=== PATIENT | female | born 1990 | race American Indian/Alaskan Native ===

== ENCOUNTER 2019-08-07 09:37 | Emergency (ER) | payer SELFPAY ==
[2019-08-07 10:09] LABS: Hematocrit 35.4 % (30.3-42.9); Hemoglobin 11.3 gm/dl (10.1-14.3); Mean Corpuscular HGB Conc 32 % (30-34); Platelet Count 371 K/mm3 (140-440); Red Blood Count 5.55 M/mm3 (3.65-5.03); Red Cell Distribution Width 18.9 % (13.2-15.2)
[2019-08-07 10:10] LABS: Mean Corpuscular Volume 64 fl (79-97)
[2019-08-07] MEDS ORDERED: SODIUM CHLORIDE 0.9% 500 ML 500 ML IV ONE (10:20)
[2019-08-07 10:26] LABS: Alanine Aminotransferase 47 units/L (7-56); Albumin 3.3 g/dL (3.9-5); BUN/Creatinine Ratio 7; Blood Urea Nitrogen 5 mg/dL (7-17); Calcium 9.1 mg/dL (8.4-10.2); Hemolysis Index 0
[2019-08-07] MEDS ORDERED: ACETAMINOPHEN 650 MG RECT SUPP PR ONE (10:26)
[2019-08-07] MEDS ORDERED: SODIUM CHLORIDE 0.9% 1000 ML 1,000 ML IV ONE ×3 (10:38→17:14)
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
[2019-08-07 10:51] LABS: INR 1.01 (0.87-1.13)
[2019-08-07 11:23] LABS: Alanine Aminotransferase 47 units/L (7-56); Albumin 3.4 g/dL (3.9-5); BUN/Creatinine Ratio 7; Bilirubin,Direct 0.3 mg/dL (0-0.2); Blood Urea Nitrogen 5 mg/dL (7-17); Calcium 9.3 mg/dL (8.4-10.2); Hemolysis Index 0
[2019-08-07 12:28] LABS: Basophils % (Manual) 0 % (0.0-1.8); Eosinophils % (Manual) 0 % (0.0-4.3); Total Cells Counted 100
[2019-08-07 12:30] LABS: Platelet Estimate Consistent w Auto; Target Cells Few
--- NOTE | 2019-08-07 14:27 | Cat Scan Report ---
CT ABDOMEN AND PELVIS WITHOUT CONTRAST HISTORY: left flank pain fever. COMPARISON: None. TECHNIQUE: CT images of the abdomen and pelvis were obtained without administration of intravenous co ntrast. All CT scans at this location are performed using CT dose reduction for ALARA by means of au tomated exposure control. FINDINGS: Lungs/bones: Lung bases are clear. No acute osseous abnormality or significant DJD. Abdomen/pelvis: The uterus demonstrates a lobulated appearance especially left of midline in the reg ion of the uterine body/fundus, compressing the distal left ureter. There is mild left-sided hydronep hrosis and inflammatory stranding tracking along the ureter and the left kidney. No radiopaque urinar y stone disease identified. The right kidney is unremarkable. Gallbladder is surgically absent. There is hepatomegaly with mild steatosis. The spleen, pancreas, ad renals, and proximal GI tract appear unremarkable. Urinary bladder is slightly effaced by the uterus. No pelvic free fluid or acute colonic abnormality identified. The appendix is normal. IMPRESSION: 1. Abnormal lobulated appearance of the uterus as described above with compression of the distal uret er causing mild hydronephrosis and inflammatory change along the ureter and the left kidney. Cannot e xclude evolving pyelonephritis. Uterine findings could be seen with fibroid disease, but at a minimum correlate with exam findings and history. Signer Name: Vasquez Spencer MD Signed: 08/07/2019 2:22 PM Workstation Name: [id number]
--- NOTE | 2019-08-07 14:35 | XRay Report ---
CHEST 1 VIEW INDICATION: possible Sepsis. COMPARISON: 04/07/2013 FINDINGS: Support devices: None. Heart: Within normal limits. Lungs/Pleura: No acute air space or interstitial disease. Additional findings: None. IMPRESSION: 1. No acute findings. Signer Name: Vasquez Spencer MD Signed: 08/07/2019 2:30 PM Workstation Name: [email or web address]
[2019-08-07] MEDS ORDERED: MORPHINE 4 MG/1 ML INJ IV ONE ×2 (15:03→17:14)
[2019-08-07] MEDS ORDERED: cefTRIAXone/NS 2 GM/100 ML 2 GM/100 ML BAG IV ONE (16:06)
[2019-08-07] MEDS ORDERED: ACETAMINOPHEN 325 MG TAB PO ONE (16:11)
[2019-08-07 16:58] LABS: Bacteria,Urine 4+ /HPF (Negative); Bilirubin,Urine NEG (Negative); Blood,Urine SM (Negative); Color,Urine Amber (Yellow); Mucus,Urine FEW /HPF; Urobilinogen,Urine < 2.0 mg/dL (<2.0)
[2019-08-07 17:00] LABS: HCG Qualitative,Urine Negative (Negative)
[2019-08-07 17:40] VITALS: BP 106/73
== END 2019-08-07 17:44 | disposition other institution (70) ==
LOC: ED 09:37
DX: A41.9 Sepsis, unspecified organism (principal); N12 Tubulo-interstitial nephritis, not specified as acute or chronic; N13.30 Unspecified hydronephrosis; D25.9 Leiomyoma of uterus, unspecified; Z90.49 Acquired absence of other specified parts of digestive tract; Z79.899 Other long term (current) drug therapy; Z88.0 Allergy status to penicillin; Z91.013 Allergy to seafood; Z88.8 Allergy status to other drugs, medicaments and biological substances
CPT/HCPCS: 36415; 71045; 74176; 80048; 80053; 80076; 81001; 81025; 82140; 82805; 84703; 85007; 85025; 85610; 87040; 87086; 93005; 93010; 96365; 96375; 96376; 99285; J0696; J2270; J7030; J7040

== ENCOUNTER 2021-12-12 05:46 | Day surgery (SDC) | payer BC ==
[2021-12-09 10:43] LABS: Basophils # (Auto) 0.1 K/mm3 (0.0-0.1); Basophils % (Auto) 1.2 % (0.0-1.8); Eosinophils # (Auto) 0.2 K/mm3 (0.0-0.4); Eosinophils % (Auto) 1.8 % (0.0-4.3); Hematocrit 34.1 % (30.3-42.9); Hemoglobin 11.1 gm/dl (10.1-14.3); Lymphocytes # (Auto) 3.2 K/mm3 (1.2-5.4); Lymphocytes % (Auto) 26.5 % (13.4-35.0); Mean Corpuscular HGB Conc 32 % (30-34); Monocytes # (Auto) 0.8 K/mm3 (0.0-0.8); Monocytes % (Auto) 6.7 % (0.0-7.3); Platelet Count 316 K/mm3 (140-440); Red Blood Count 4.97 M/mm3 (3.65-5.03)
[2021-12-09 10:53] LABS: Blood Urea Nitrogen 8 mg/dL (7-17); Calcium 8.8 mg/dL (8.4-10.2); Hemolysis Index 0; Mean Corpuscular Volume 69 fl (79-97)
[2021-12-09 10:59] LABS: BUN/Creatinine Ratio 20
--- NOTE | 2021-12-10 16:10 | History and Physical Report ---
History of Present Illness Date of examination: 12/09/21 History of present illness: Patient has been reassessed/reevaluated. H&P has been reviewed. No interval changes. This is a 31 years old female who presents with uterine fibroids. She complains of abdominal pain, abdominal pressure, pelvic pain, pelvic pressure, menorrhagia and intermenstrual bleeding. Treatment tried to date includes control pills and NSAIDs. Patient's work up has included a transvaginal ultrasound which revealed a 7cm fundal myoma The patient also presents with menstrual disorder. She complains of irregular menses, heavy bleeding, lack of menses, dysmenorrhea, clotting, fatigue and cramping, but denies mid-cycle spotting, history of ovarian cysts, history of thyroid disease history of PCOS, history of bleeding disorder and lightheadedness. Patient reports that for pain she uses OCP's and ibuprofen. Patient's symptoms when present disrupts her normal daily activities ] Vital Signs: Patient Profile: 31 Years Old Female LMP: 09/03/2021 Height: 64 inches (162.56 cm) Weight: 321 pounds BMI: 55.09 Temp: 97.1 degrees F BP sittin / 80 (right arm) Menstrual History: Current Method of Contraception: None Date of Last Pap Smear: 08/12/2021 Past History : 0 Term Births: 0 Premature Births: 0 Living Children: 0 Para: 0 Mult. Births: 0 Prev : 0 Aborta: 0 Elect. Ab: 0 Spont. 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 of genital herpes: yes Hx of STD: None Review of Systems General Complains of fatigue. Denies fever, chills, sweats, anorexia, weakness, malaise, weight loss and sleep disorder. Complains of menorrhagia, pelvic pain and painful periods. Denies vaginal discharge, incontinence, dysuria, hematuria, urinary frequency, amenorrhea, abnormal vaginal bleeding, genital sores, decreased libido, painful sex, urinary urgency, hot flashes, vaginal dryness, vaginal itching and vaginal odor. CV Denies chest pains, palpitations, syncope, dyspnea on exertion, orthopnea, PND and peripheral edema. Resp Denies cough, dyspnea at rest, excessive sputum, hemoptysis, wheezing and pleurisy. GI Denies nausea, vomiting, diarrhea, constipation, change in bowel habits, abdominal pain, melena, hematochezia, jaundice, gas/bloating, indigestion/heartburn, dysphagia and odynophagia. Breast Denies left breast lump, right breast lump, nipple discharge, bloody discharge from nipple, breast pain, abnormal mammogram and breast enlargement. Psych Denies depression, anxiety, irritability and mood swings. Past History Past Medical History: other (Please see HPI) Past Surgical History: Other (Please see HPI) Social history: full code (Please see HPI) Family history: other (Please see HPI) Medications and Allergies Allergies Allergy/AdvReac Type Severity Reaction Status Date / Time iodine Allergy Unknown Verified 10/19/13 07:14 Penicillins Allergy Hives Verified 04/30/16 18:39 shellfish derived Allergy Hives Verified 11/10/13 08:57 Home Medications Medication Instructions Recorded Confirmed Last Taken Type Norgestimate-Ethinyl Estradiol 1 tab PO DAILY 11/29/21 11/29/21 Unknown History [Sprintec 28 Day Tablet] Active Meds: Active Medications Acetaminophen (Acetaminophen 500 Mg Tab) 1,000 mg PO ONCE ODETTE Celecoxib (Celecoxib 200 Mg Cap) 400 mg PO PREOP ODETTE Lactated Ringer's (Lactated Ringers) 1,000 mls @ 125 mls/hr IV DIRECT ODETTE Magnesium Oxide (Magnesium Oxide 400 Mg Tab) 400 mg PO ONCE ODETTE Methocarbamol (Methocarbamol 750 Mg Tab) 1,500 mg PO ONCE ODETTE Review of Systems Constitutional: other (Please see HPI) Exam - Physical Exam Narrative exam: HEENT: normocephalic, no lesions or deformities Skin no ulcers, xanthomas .Tatoo(s) are present Chest: respiratory effort normal, clear to auscultation CV: regular, normal S1-S2, no murmur, no rub, no gallop Abdomen: Obese, normal bowel sounds, soft, nontender, no HSM Neuro: no gross anomalities Extremities: normal alignment, no joint enlargement, crepitus, masses or tenderness; normal tone and strength [employer]PER[employer] COMM[employer]ICATIONS [employer] SIGNALS Exams Vulva/Vagina: normal appearance, no discharge, lesions. No evidence of cystocele or rectocele. Cervix: normal appearance, no lesions, no discharge Uterus: unable to palpate due to obesity Adnexae: unable to palpate due to obesity Rectovaginal: exam defered - Constitutional Vitals: Temp Pulse Resp BP Pulse Ox 98.4 F 92 H 16 132/67 99 12/09/21 09:45 12/09/21 09:45 12/09/21 09:45 12/09/21 09:45 12/09/21 09:45 Results - Labs CBC & Chem 7: 12/09/21 09:55 12/09/21 09:55 Assessment and Plan - Patient Problems (1) Intramural leiomyoma of uterus Current Visit: No Status: Acute Plan to address problem: Diagnosis explained to patient . Questions answered. Discussed with patient various medical, surgical and radiological therapies common for treatment including expectant management, myomectomy hysterectomy and uterine artery embolization Patient's symptoms when present disrupts her normal daily activities Patient desires definitive treatment.Patient desires to retain future fertility. She desires myomectomy. Discussed risks and benefits of laparotomy and robotic assisted approaches Patient desires robotic assisted myomectomy. Discuss the risks of the surgery including infection, bleeding possibly heavy enough to require a blood transfusion, possible damage to bowel, bladder or ureter. Patient understands that there is a possibility that a hysterectomy maybe indicated for severe bleeding not resoved with conservative measures.Patient advised the small risks of spreading of malignancy if morcellator is used during the surgery patient understands and approve of use if necessary. All her questions were answered. Patient understands Patient u nderstands and desires to proceed. (2) Menometrorrhagia Current Visit: No Status: Acute Plan to address problem: Probably secondary to # 1 (3) Dysmenorrhea Current Visit: No Status: Acute Plan to address problem: Probably secondary to # 1 (4) Adult BMI 50.0-59.9 kg/sq m Current Visit: No Status: Acute Plan to address problem: Patient has been advised that obesity does increase risks of surgical and risks of post operative complications.
[2021-12-12] MEDS ORDERED: LACTATED RINGERS 1,000 ML IV SCH (06:00)
[2021-12-12] MEDS ORDERED: MAGNESIUM OXIDE 400 MG TAB PO SCH (06:00)
[2021-12-12] MEDS ORDERED: ACETAMINOPHEN 500 MG TAB PO SCH (06:00)
[2021-12-12] MEDS ORDERED: CELECOXIB 200 MG CAP PO SCH (06:00)
[2021-12-12] MEDS ORDERED: GENTAMICIN 500 MG in SODIUM CHLORIDE 0.9% 100 ML IV ONE (07:00)
[2021-12-12] MEDS ORDERED: VASOPRESSIN 20 UNIT/1 ML INJ ONE (07:19)
[2021-12-12] MEDS ORDERED: SODIUM CHLORIDE 0.9% 100 ML ONE (07:19)
[2021-12-12] MEDS ORDERED: LIDOCAINE PF 100 MG/5 ML (CARDIAC SYRINGE) IV ONE (07:27)
[2021-12-12] MEDS ORDERED: ROCURONIUM 50 MG/5 ML INJ IV ONE ×2 (07:27→12:21)
[2021-12-12] MEDS ORDERED: propofoL 200 MG/20 ML VIAL IV ONE (07:27)
[2021-12-12] MEDS ORDERED: fentaNYL 250 MCG/5 ML INJ ONE (07:27)
[2021-12-12] MEDS ORDERED: dexAMETHasone 4 MG/ML VIAL ONE (07:35)
[2021-12-12] MEDS ORDERED: fentaNYL 100 MCG/2 ML INJ ONE ×2 (07:35→11:56)
[2021-12-12] MEDS ORDERED: BUPIVACAINE/PF (0.25%) 2.5 MG/ML 30 ML VIAL INFILTRATI ONE (07:35)
[2021-12-12] MEDS ORDERED: MIDAZOLAM 2 MG/2 ML INJ ONE (07:35)
--- NOTE | 2021-12-12 07:37 | Anesthesia Consultation ---
Anesthesia Consult and Med Hx Date of service: 12/12/21 - Airway Anesthetic Teeth Evaluation: Good ROM Head & Neck: Adequate Mental/Hyoid Distance: Adequate Mallampati Class: Class III Intubation Access Assessment: Probably Good - Pre-Operative Health Status ASA Pre-Surgery Classification: ASA3 Proposed Anesthetic Plan: General Nerve Block: TAP Block - Pulmonary Hx Smoking: Yes (SMOKES MARIJUANA) Hx Asthma: No COPD: No Hx Sleep Apnea: No - Cardiovascular System Hx Hypertension: Yes (ONLY WITH MIGRAINES- NO MEDS) - Central Nervous System Hx Psychiatric Problems: Yes - Endocrine Hx Renal Disease: No (Hydronephrosis, pyelonephritis) - Hematic Hx Anemia: Yes Hx Sickle Cell Disease: No - Other Systems Hx Alcohol Use: No Hx Substance Use: Yes (MARIJUANA) Hx Cancer: No Hx Obesity: Yes (BMI 53) - Additional Comments Anesthesia Medical History Comments: No problems with anesthesia or family history.
--- NOTE | 2021-12-12 07:39 | Anesthesia Day of Surgery ---
Anesthesia Day of Surgery - Day of Surgery Patient Examined: Yes Patient H&P Reviewed: Yes Patient is NPO: Yes Beta Blockers: No Cardiac Clearance: No Pulmonary Clearance: No Kashmir's Test: N/A
[2021-12-12] MEDS ORDERED: ANTICOAGULANT SOD CITRATE SOLUTION MC ONE ×2 (08:42→09:11)
[2021-12-12] MEDS ORDERED: GENTAMICIN/NS 120MG/100ML 120 MG/100 ML BAG IV SCH (09:00)
[2021-12-12] MEDS ORDERED: SODIUM CHLORIDE 0.9% IRRIG SOLN 2000 ML IR ONE (09:10)
[2021-12-12] MEDS ORDERED: VASOPRESSIN 20 UNIT/1 ML INJ IM ONE (09:10)
[2021-12-12] MEDS ORDERED: SODIUM CHLORIDE 0.9% 100 ML IVPB IV ONE (09:10)
[2021-12-12] MEDS ORDERED: SODIUM CHLORIDE 0.9% IRR 1,500 ML BOTTLE IR ONE (09:11)
[2021-12-12] MEDS ORDERED: dexAMETHasone 20 MG/5 ML VIAL ONE (12:12)
[2021-12-12] MEDS ORDERED: ONDANSETRON 4 MG/2 ML INJ ONE (12:12)
[2021-12-12] MEDS ORDERED: KETOROLAC 30 MG/1 ML INJ ONE (12:12)
[2021-12-12] MEDS ORDERED: GLYCOPYRROLATE 0.4 MG/2 ML INJ ONE (12:21)
[2021-12-12] MEDS ORDERED: NEOSTIGMINE 10MG/10 ML INJ MDV ONE (12:21)
--- NOTE | 2021-12-12 12:46 | Operative Report ---
Operative Report Operative Report: Date of procedure: December 12, 2021 Pre-operative diagnosis: Symptomatic leiomyomata with dysmenorrhea menorrhalgia Post-operative diagnosis: Same plus pelvic adhesive disease Procedure name(s): Robotic assisted laparoscopic myomectomy with lysis of adhesions Surgeon: Ben Mejia MD Mechanic'S Assistant: Liudmila Fernandez, certified medical asst Anesthesia: General endotracheal EBL: 50 cc Complications: None Findings: Patient with multiple leiomyomata the largest approximately about 9 cm in diameter was fundal and posterior head 2 to 3 cm pedunculated fundal myoma and approximately 1 cm posterior myoma. Patient did have adhesions between her left adnexa and large intestine Specimen(s): Leiomyomata Procedure: Patient taken operating room where general endotracheal anesthesia was induced difficulty. She was placed in dorsal lithotomy position prepped and draped in usual normal sterile fashion for robotic procedure. The Gray catheter was placed in urinary bladder without difficulty speculum placed in the vagina. A medium [employer] [place] V care uterine manipulator was placed without any difficulty. Then attention was switched to the patient's abdomen. Supra-umbilical incision was made with a knife. Spread with a hemostat. A 10-12 Trocar was placed in this incision while lifting out anterior abdominal wall under direct visualization. Intra-abdominal cavity was entered without any evidence of internal organ damage. Patient was insufflated approximately 3 and half liters of CO2 gas. Patient's pelvic findings noted above. The patient was perceived to be a candidate for robotic procedure. Three 8 mm robotic instrument trocars were placed. One on either side of the midline camera trocar approximately 8 cm from the midline and a third in the left lower quadrant approximately 2 fingerbreadths above the iliac crest. The trocars were placed under direct visualization with no signs of internal organ damage. An bilingual administrative assistant port was placed in the right lower quadrant 2 fingerbreadths above the iliac crest under direct visualization without any evidence of internal organ damage, this was a 10-12 trocar. Maikel Stanford fascia closure systems were placed in the right lower quadrant trocar position. The patient was then placed in severe Trendelenburg position. At this time the da [place] robot was docked on the patient's left side and robotic trocars were connected and robotic instruments placed in the normal fashion. At that time I my place under the operating mart. Starting with the right adnexa adhesions were taken down between the adnexa and her descending colon. Pitressin was injected around the large myoma and pedunculated myoma approximately 40 cc. Starting at the fundus and midline incision was made posterior uterus. This incision was taken down onto the large myoma was reached. Due to myoma actually extending under the pedunculated myoma the fundus pedunculated myoma was taken out by cauterizing the stalk. And cut across with the robotic scissors. This myoma was stitch to the anterior abdominal wall for placement to be morcellated at the end of the procedure. Attention was then switched to the large myoma was removed with bluntly and sharply with the robotic scissors. Removing this large myoma did have a small defect in the endometrium. The resulting defect was then closed in layers with care not to compromise the uterine cavity. This was closed with 0 Vicryl. The serosa was then reapproximated in a baseball stitch fashion. The closure was hemostatic. Attention was then switched to the removal of the myomas. Morcellator was then placed through the bilingual administrative assistant port. Starting with the small myoma was detached from anterior abdominal wall removed through the morcellator. The large myoma a course took several passes with the morcellator to be removed. As best as we could removed remaining pieces of the myoma. The pelvis was copiously irrigated and suction again thorough search really did not find any other pieces of the myoma. The uterus was hemostatic. The uterine incision line was covered with Interceed to prevent future adhesions. Please note that all future pregnancies must be delivered by section All instruments were removed. The da [place]ina device was undocked. The laparoscope was then placed through the lower incision to visualized the upper abdomen and the omentum which showed no evidence of bowel damage. The abdominal incisions were closed with 2-0 Vicryl it was placed through the Maikel Stanford fascial closure system. This was followed by 4-0 Monocryl subcutaneously. Patient tolerated procedure well. Patient was awakened in operating room and ac companied to recovery room in good condition.
[2021-12-12] MEDS ORDERED: ACETAMINOPHEN 325 MG TAB PO PRN (12:48)
[2021-12-12] MEDS ORDERED: HYDROcodone/ACETAMINOPHEN 5-325 MG TAB PO PRN (12:48)
--- NOTE | 2021-12-12 12:58 | Short Stay Summary ---
Short Stay Documentation Date of service: 12/12/21 - History Principal diagnosis: Symptomatic large leiomyomata with dysmenorrhea and menorrhalgia H&P: dictated Past Medical History: other (Please see HPI) Past Surgical History: Other (Please see HPI) Social history: full code (Please see HPI) - Allergies and Medications Current Medications: Allergies iodine Allergy (Verified 10/19/13 07:14) Unknown Penicillins Allergy (Verified 04/30/16 18:39) Hives shellfish derived Allergy (Verified 11/10/13 08:57) Hives Home Medications Medication Instructions Recorded Confirmed Last Taken Type Norgestimate-Ethinyl Estradiol 1 tab PO DAILY 11/29/21 12/12/21 12/11/21 09:00 History [Sprintec 28 Day Tablet] Active Medications Acetaminophen (Acetaminophen 500 Mg Tab) 1,000 mg PO ONCE ODETTE Last Admin: 12/12/21 06:30 Dose: 1,000 mg Acetaminophen (Acetaminophen 325 Mg Tab) 650 mg PO Q4H PRN PRN Reason: Pain MILD(1-3)/Fever >100.5/BASS Hydrocodone Bitart/Acetaminophen (Hydrocodone/Acetaminophen 5-325 Mg Tab) 2 each PO Q6H PRN PRN Reason: Pain, Moderate (4-6) Celecoxib (Celecoxib 200 Mg Cap) 400 mg PO PREOP ODETTE Last Admin: 12/12/21 06:30 Dose: 400 mg Lactated Ringer's (Lactated Ringers) 1,000 mls @ 125 mls/hr IV DIRECT ODETTE Last Admin: 12/12/21 07:30 Dose: 125 mls/hr Clindamycin HCl (Cleocin 900 Mg/50 Ml) 900 mg in 50 mls @ 100 mls/hr IV PREOP NR; Protocol Stop: 12/12/21 23:59 Gentamicin Sulfate/Sodium Chloride (Gentamicin/Ns 120mg/100ml) 120 mg in 100 mls @ 200 mls/hr IV PREOP ODETTE Stop: 12/12/21 17:00 Magnesium Oxide (Magnesium Oxide 400 Mg Tab) 400 mg PO ONCE ODETTE Last Admin: 12/12/21 06:30 Dose: 400 mg Methocarbamol (Methocarbamol 750 Mg Tab) 1,500 mg PO ONCE ODETTE Last Admin: 12/12/21 06:30 Dose: 1,500 mg - Physical exam General appearance: no acute distress Integumentary: no rash HEENT: Atraumatic Lungs: Normal air movement Breasts: deferred Heart: Regular rate Gastrointestinal: hypoactive bowel sounds, tenderness (Appropriate postop), distended (Appropriate postop robotic procedure) Female Genitourinary: normal Rectal Exam: deferred Extremities: no ischemia - Brief post op/procedure progress note Date of procedure: 12/12/21 (See dictated operative note for details) Anesthesia: GETA Condition: stable - Hospital course Hospital course: Patient was admitted underwent the above him procedure without any complications. Patient will be discharged with follow-up in office in 1-2 weeks for postop check. - Disposition Condition at discharge: Good Disposition: 01 HOME / SELF CARE / HOMELESS - Discharge Diagnoses (1) Intramural leiomyoma of uterus Status: Acute (2) Menometrorrhagia Status: Acute (3) Dysmenorrhea Status: Acute (4) Adult BMI 50.0-59.9 kg/sq m Status: Acute Short Stay Discharge Plan Activity: advance as tolerated Diet: regular Wound: open to air Additional Instructions: Patient to call office for any fever, chills, nausea, vomiting or pain not controlled by pain medication. Follow up with: PRIMARY MD CARA [Primary Care Provider] - 7 Days
[2021-12-12] MEDS ORDERED: ONDANSETRON 4 MG/2 ML INJ IV PRN (14:13)
[2021-12-12] MEDS ORDERED: HYDROmorphone 0.5 MG/0.5 ML INJ IV PRN ×2 (14:13)
[2021-12-12] MEDS ORDERED: HYDROmorphone 0.5 MG/0.5 ML INJ ONE (14:16)
--- NOTE | 2021-12-12 18:55 | Post Anesthesia Evaluation ---
- Post Anesthesia Evaluation Patient Participated: Yes Airway Patent: Yes Stable Respiratory Function: Yes Nausea/Vomiting: No Temp > 96.8F: Yes Pain Manageable: Yes Adequeate Hydration: Yes Anesthesia Complications: No Block Receding Appropriately: Yes Patient on Ventilator: No
[2021-12-12 20:23] VITALS: BP 134/90
== END 2021-12-12 16:15 | disposition home or self-care (01) ==
LOC: OR 05:46
PROVIDERS: ATTEND Obstetrics & Gynecology
DX: D25.1 Intramural leiomyoma of uterus (principal); N92.1 Excessive and frequent menstruation with irregular cycle; N94.6 Dysmenorrhea, unspecified; D64.9 Anemia, unspecified; G43.909 Migraine, unspecified, not intractable, without status migrainosus; G51.0 Bell's palsy; I10 Essential (primary) hypertension; E66.9 Obesity, unspecified; K21.9 Gastro-esophageal reflux disease without esophagitis; F41.9 Anxiety disorder, unspecified; Z88.0 Allergy status to penicillin; Z91.013 Allergy to seafood; Z91.041 Radiographic dye allergy status; Z79.899 Other long term (current) drug therapy; Z90.49 Acquired absence of other specified parts of digestive tract; Z68.43 Body mass index [BMI] 50.0-59.9, adult; Z87.440 Personal history of urinary (tract) infections; Z98.890 Other specified postprocedural states
CPT/HCPCS: 36415; 58546; 64488; 80048; 85025; 86850; 86900; 86901; 88305; C1782; J1100; J1170; J1580; J1815; J1885; J2001; J2250; J2405; J2704; J2710; J3010; J3490; J7120; J7502; S2900; U0003; 64450